=== PATIENT | male | born 1960 | race Two or more races ===

== ENCOUNTER 2022-02-11 01:52 | Emergency (ER) | payer BC ==
[~2022-02-11] VITALS: Ht 172.7 cm; Wt 70.5 kg
[2022-02-11 02:40] VITALS: BP 150/95
[2022-02-11] MEDS ORDERED: ACET-1158 PO (04:21)
[2022-02-11] MEDS ORDERED: AMOX-277 PO (04:21)
== END 2022-02-11 04:36 | disposition home or self-care (01) ==
LOC: ER 01:52
DX: S70.12XA Contusion of left thigh, initial encounter (principal); S71.152A Open bite, left thigh, initial encounter; Z79.2 Long term (current) use of antibiotics; Z79.899 Other long term (current) drug therapy; W54.0XXA Bitten by dog, initial encounter; Y93.89 Activity, other specified; Y92.89 Other specified places as the place of occurrence of the external cause; Y99.8 Other external cause status